=== PATIENT | male | born 1950 | race Caucasian/White ===

== ENCOUNTER → 2023-12-12 | Outpatient (CLI) | payer MEDICARE ==
[~2023-12-12] MED LIST: ASPI325T; ATEN50TA2; GLIP2.5T20; GLUC1000; HYDR25TA6; LISI20TA5; LOPR50TA; PROT1TAB2
== END ==
LOC: M RAD 11:16
PROVIDERS: ATTEND Surgery
DX: R68.89 Other general symptoms and signs (principal); M71.22 Synovial cyst of popliteal space [Baker], left knee; E11.59 Type 2 diabetes mellitus with other circulatory complications